=== PATIENT | female | born 1995 | race Caucasian/White ===

== ENCOUNTER → 2022-04-08 | Outpatient (CLI) | payer MEDICAID, SELFPAY ==
[2022-04-13 09:54] LABS: HPV Reflexed? NOT INDICATED
== END | disposition home or self-care (01) ==
LOC: LABSPEC 10:44
PROVIDERS: PCP Family Medicine; Visit Provider Student in an Organized Health Care Education/Training Program
DX: Z12.4 Encounter for screening for malignant neoplasm of cervix (principal)
CPT/HCPCS: 88175; G0145